=== PATIENT | female | born 1935 | race Caucasian/White ===

== ENCOUNTER 2021-09-17 14:05 | Emergency (ER) | payer MEDICARE, OTHER ==
[2021-09-17 14:45] LABS: BASOPHIL 0.3 % (0-2); EOSINOPHIL 2.4 % (0-7); HCT 40.8 % (37.0-47.0); HGB 13.4 g/dl (12.5-16.0); LYMPHOCYTE 28.4 % (15-48); MCH 32.4 pg (25.0-31.0); MCHC 32.8 g/dL (32.0-36.0); MCV 98.6 fL (78.0-100.0); MONOCYTE 11.5 % (0-12); MPV 10.6 fL (6.0-9.5); NRBC 0; PLT 224 K/uL (150-400); RBC 4.14 M/uL (4.20-5.40); WBC 7.8 K/uL (4.0-10.5)
[2021-09-17 14:58] LABS: BUN/CREAT RATIO (CALC) 21.3 RATIO; CREATININE 0.94 mg/dL (0.51-0.95); POTASSIUM 4.4 mmol/L (3.5-5.1)
[2021-09-17 15:25] LABS: CORONAVIRUS 2019 SARS-COV-2 POSITIVE (NEGATIVE); INFLUENZA A NAA NEGATIVE (NEGATIVE)
[2021-09-17 15:28] LABS: BILIRUBIN NEGATIVE (NEGATIVE); BLOOD TRACE-INTACT Ery/uL (NEGATIVE); GLUCOSE (U) 2+ mg/dL (NORMAL); LEUKOCYTES TRACE Leu/uL (NEGATIVE); NITRITE POSITIVE (NEGATIVE); PROTEIN NEGATIVE (NEGATIVE); UROBILINOGEN 0.2 mg/dL (0.2-1.0)
[2021-09-17 15:33] LABS: CLARITY CLOUDY (CLEAR); COLOR AMBER (YELLOW)
[2021-09-17 15:35] LABS: BACTERIA 1+; URINARY RBC RARE; URINARY WBC 20-50; YEAST PRESENT
[2021-09-17] MEDS ORDERED: CEPHALEXIN500 MG PO (15:45)
== END 2021-09-17 15:56 | disposition home or self-care (01) ==
LOC: FER 14:05
PROVIDERS: Nurse Practitioner Family
DX: U07.1 COVID-19 (principal); N39.0 Urinary tract infection, site not specified; Z88.0 Allergy status to penicillin; Z88.2 Allergy status to sulfonamides; Z88.5 Allergy status to narcotic agent
CPT/HCPCS: 36415; 80048; 81001; 85025; 99284; J7030; U0002

== ENCOUNTER 2021-10-01 20:01 | Emergency (ER) | payer MEDICARE, OTHER ==
[~2021-10-01 20:01] MED LIST: CEPHALEXIN500 MG PO
[2021-10-01 23:00] LABS: BASOPHIL 0.2 % (0-2); EOSINOPHIL 1.1 % (0-7); HCT 37.7 % (37.0-47.0); HGB 12.7 g/dl (12.5-16.0); LYMPHOCYTE 23.6 % (15-48); MCH 32.6 pg (25.0-31.0); MCHC 33.7 g/dL (32.0-36.0); MCV 96.7 fL (78.0-100.0); MONOCYTE 11.4 % (0-12); MPV 9.7 fL (6.0-9.5); NEUTROPHIL 63.5 % (41-80); NRBC 0; PLT 296 K/uL (150-400); RDW 12.2 % (11.5-14.0); WBC 8.3 K/uL (4.0-10.5)
[2021-10-01 23:15] LABS: ALBUMIN 3.8 g/dL (3.4-5.0); CREATININE 1.36 mg/dL (0.51-0.95); GLOBULIN (CALCULATION) 3.1 g/dL; TOTAL PROTEIN 6.9 g/dL (6.4-8.2)
[2021-10-01 23:29] LABS: LACTIC ACID 0.8 mmol/L (0.4-1.9)
[2021-10-02 01:53] LABS: BILIRUBIN NEGATIVE (NEGATIVE); BLOOD TRACE-INTACT Ery/uL (NEGATIVE); COLOR YELLOW (YELLOW); GLUCOSE (U) 1+ mg/dL (NORMAL); LEUKOCYTES 3+ Leu/uL (NEGATIVE); NITRITE POSITIVE (NEGATIVE); PROTEIN TRACE (LOW) mg/dL (NEGATIVE); SPECIFIC GRAVITY <=1.005 (1.001-1.030)
[2021-10-02 01:55] LABS: CLARITY SLIGHTLY HAZY (CLEAR)
[2021-10-02 01:58] LABS: BACTERIA 3+; URINARY WBC 20-50
[2021-10-02] MEDS ORDERED: CIPRO500 MG PO (02:14)
[2021-10-02] MEDS ORDERED: ONDANSETRON ODT4 MG PO (02:14)
== END 2021-10-02 02:25 | disposition home or self-care (01) ==
LOC: FER 20:01
PROVIDERS: Nurse Practitioner Family
DX: N39.0 Urinary tract infection, site not specified (principal); K52.9 Noninfective gastroenteritis and colitis, unspecified; I10 Essential (primary) hypertension; E11.9 Type 2 diabetes mellitus without complications; Z79.4 Long term (current) use of insulin; Z79.899 Other long term (current) drug therapy; Z88.2 Allergy status to sulfonamides; Z88.5 Allergy status to narcotic agent
CPT/HCPCS: 36415; 80053; 81001; 82150; 83605; 83690; 84145; 85025; 87040; J2405; J3490; J7030